=== PATIENT | female | born 1950 | race Caucasian/White ===

== ENCOUNTER 2021-10-25 09:51 | Emergency (ER) | payer OTHER ==
[~2021-10-25] VITALS: Ht 160 cm; Wt 78.1 kg
[2021-10-25 09:55] VITALS: BP 135/103
--- NOTE | 2021-10-25 10:02 | NUR ---
ER MD LUKE TO IN TRIAGE. PT TO ER BED 8
[2021-10-25] MEDS ORDERED: MECL-303 PO (10:04)
--- NOTE | 2021-10-25 10:07 | NUR ---
Patient transported to CT by wheelchair
--- NOTE | 2021-10-25 10:22 | NUR ---
EMT at bedside for EKG
--- NOTE | 2021-10-25 10:22 | NUR ---
Patient returned from CT and placed onto residential care facility manager.
--- NOTE | 2021-10-25 10:32 | NUR ---
71 y/o F BIB self c/o dizziness and insomnia x 4 days. Patient A&Ox4, ambulatory, reports symptoms began 4 days ago and has not improved with prescribed Meclizine. Pt also reports feeling very nervous with tingling to bilateral hands and left side of her face. Pt states symptoms has been on and off and the anxious will cause her to pace back and forth. Pt denies chest pain, headache, abdominal pain, fever, chills, nausea, vomiting, vision changes, hearing loss, dysuria. Denies other meds prior to arrival. radio communications superintendent in place; VSS respirations even/unlabored. Cap refill immediate. Skin pink/warm/dry. Bed locked in lowest position, side rails x 1, call light in reach. PMH/Sx/Meds: vertigo, meclizine NKDA
[2021-10-25 10:54] LABS: BASOPHILS % (AUTO) 0.1 % (0.0-2.0); EOSINOPHILS % (AUTO) 0.2 % (0.0-4.0); HEMATOCRIT 46.1 % (36-48); HEMOGLOBIN 15.4 g/dL (12.0-16.0); LYMPHOCYTES # (AUTO) 0.8 K/uL (2.5-16.5); MEAN CORPUSCULAR HEMOGLOBIN 29 pg (27-31); MEAN CORPUSCULAR HGB CONC 34 g/dL (33-37); MEAN CORPUSCULAR VOLUME 85.8 fL (80-94); MONOCYTES # (AUTO) 0.2 K/uL (0.8-1.0); MONOCYTES % (AUTO) 5.4 % (1.7-9.3); NEUTROPHILS # (AUTO) 3.3 K/uL (1.8-7.7); NEUTROPHILS % (AUTO) 75.3 % (42.2-75.2); PLATELET COUNT (AUTO) 185 K/uL (140-450); RED BLOOD CELL COUNT(AUTO) 5.37 MIL/uL (4.20-5.40); RED CELL DISTRIBUTION WIDTH 14.1 % (11.6-13.7); WHITE BLOOD COUNT (AUTO) 4.4 K/uL (4.8-10.8)
[2021-10-25 11:02] LABS: ALBUMIN 3.6 g/dL (3.4-5.0); ANION GAP 15.2 (8-16); ASPARTATE AMINOTRANSFERASE 24 U/L (15-37); CARBON DIOXIDE 28.8 mmol/L (21-32); CHLORIDE 105 mmol/L (98-107); CREATININE 0.7 mg/dL (0.6-1.3); GLUCOSE 100 mg/dL (74-106); MAGNESIUM 2.1 mg/dL (1.8-2.4); SODIUM SERUM 145 mmol/L (136-145); TOTAL BILIRUBIN 0.6 mg/dL (0.0-1.0); UREA NITROGEN, BLOOD 13 mg/dL (7-18)
--- NOTE | 2021-10-25 11:02 | NUR ---
PER TELENEURO REQUEST INTIATED;CONNECT ID [id number]
--- NOTE | 2021-10-25 11:10 | NUR ---
Spoke with Milana from [facility] who states patient is #2 on queue list with JOVANNI Bundy for consultation 10-15 minutes.
--- NOTE | 2021-10-25 11:15 | NUR ---
Tele[facility] speaking with patient; pediatric physical therapy assistant # [phone] on phone
--- NOTE | 2021-10-25 11:46 | NUR ---
Dr. Mittal is reevaluating pt at bedside
[2021-10-25] MEDS ORDERED: ASPIRIN 325 MG TABEC PO SCH (11:50)
--- NOTE | 2021-10-25 13:58 | NUR ---
SPOKE WITH HOSSEIN FROM [facility]; PROVIDED LAB INFORMATION, CT INFO. OHSSEIN REQUESTED FOR INFORMATION TO BE FAXED TO #. [place] MADE AWARE
--- NOTE | 2021-10-25 14:11 | NUR ---
PT AMBULATED TO RESTROOM WITH STEADY/EVEN GAIT. PLACED BACK ONTO PARISH VISITOR.
--- NOTE | 2021-10-25 14:27 | NUR ---
MIGUEL WALKED TO LAB AND HANDED TO CPT GURDEEP
--- NOTE | 2021-10-25 14:40 | NUR ---
Report and transfer of care endorsed to ANDRE Triana
[2021-10-25] MEDS ORDERED: IBUP-2213 PO (15:40)
[2021-10-25] MEDS ORDERED: ATA25 PO (15:40)
--- NOTE | 2021-10-25 16:30 | NUR ---
Zulay from [facility] requested to speak to patient via a translater phone, phone provided to patient as well as the translater.
[2021-10-25 17:04] VITALS: BP 127/72
--- NOTE | 2021-10-25 17:06 | NUR ---
Patient discharged with v/s stable. Written and verbal after care instructions given and explained. Patient alert, oriented and verbalized understanding of instructions. Ambulatory with steady gait. All questions addressed prior to discharge. ID band removed. Patient advised to follow up with PMD. Rx of ATARAX AND MOTRIN given. Patient educated on indication of medication including possible reaction and side effects. Opportunity to ask questions provided and answered.
== END 2021-10-25 17:06 | disposition home or self-care (01) ==
LOC: MED 09:51
DX: R20.0 Anesthesia of skin (principal); Z20.822 Contact with and (suspected) exposure to COVID-19; R53.1 Weakness; F41.9 Anxiety disorder, unspecified; Z79.899 Other long term (current) drug therapy
CPT/HCPCS: 36415; 70450; 80053; 83735; 84484; 85025; 93005; 99285

== ENCOUNTER 2023-12-19 10:09 | Emergency (ER) | payer OTHER ==
[~2023-12-19] VITALS: Ht 165.1 cm; Wt 72.6 kg
[~2023-12-19 10:09] MED LIST: ATA25 PO; IBUP-2213 PO; MECL-303 PO
[2023-12-19 10:19] VITALS: BP 147/101; PULSE 90; RESP 18; TEMP 96.8; O2SAT 95
[2023-12-19 11:26] LABS: BASOPHILS % (AUTO) 0.3 % (0.0-2.0); EOSINOPHILS % (AUTO) 0.8 % (0.0-4.0); HEMOGLOBIN 15.2 g/dL (12.0-16.0); LYMPHOCYTES # (AUTO) 0.9 K/uL (2.5-16.5); LYMPHOCYTES % (AUTO) 18.7 % (20.5-51.1); MEAN CORPUSCULAR HEMOGLOBIN 29 pg (27-31); MEAN CORPUSCULAR HGB CONC 33 g/dL (33-37); MEAN CORPUSCULAR VOLUME 86.9 fL (80-94); MONOCYTES # (AUTO) 0.3 K/uL (0.8-1.0); MONOCYTES % (AUTO) 6.7 % (1.7-9.3); NEUTROPHILS # (AUTO) 3.4 K/uL (1.8-7.7); NEUTROPHILS % (AUTO) 73.5 % (42.2-75.2); PLATELET COUNT (AUTO) 162 K/uL (140-450); RED BLOOD CELL COUNT(AUTO) 5.29 MIL/uL (4.20-5.40); RED CELL DISTRIBUTION WIDTH 14.9 % (11.6-13.7); WHITE BLOOD COUNT (AUTO) 4.7 K/uL (4.8-10.8)
[2023-12-19 11:37] LABS: ANION GAP 9.2 (8-16); CARBON DIOXIDE 31.1 mmol/L (21-32); CHLORIDE 108 mmol/L (98-107); CREATININE 0.7 mg/dL (0.6-1.3); GLUCOSE 92 mg/dL (74-106); POTASSIUM 4.3 mmol/L (3.5-5.1); SODIUM SERUM 144 mmol/L (136-145); UREA NITROGEN, BLOOD 15 mg/dL (7-18)
[2023-12-19 13:00] VITALS: O2SAT 95
[2023-12-19] MEDS ORDERED: FUROSEMIDE 40 MG/4 ML VIAL IVP SCH (17:25)
[2023-12-19 18:54] VITALS: BP 152/92; PULSE 91; RESP 20; TEMP 98.6; O2SAT 95
== END 2023-12-19 18:54 | disposition short-term general hospital (02) ==
LOC: MED 10:09
DX: I50.9 Heart failure, unspecified (principal); R79.89 Other specified abnormal findings of blood chemistry; Z79.899 Other long term (current) drug therapy
CPT/HCPCS: 36415; 71045; 80048; 83880; 84484; 85025; 93005; 96374; 99285; J1940